=== PATIENT | female | born 1995 | race Caucasian/White ===

== ENCOUNTER 2020-05-25 00:56 | Emergency (ER) | payer SELFPAY ==
[2020-05-25] MEDS ORDERED: ACETAMINOPHEN 325 MG TABLET PO ONE (01:11)
--- NOTE | 2020-05-25 01:13 | ER Document Report ---
ED Medical Screen (RME) - General Chief Complaint: Vaginal Pain Stated Complaint: VAGINAL PAIN Time Seen by Provider: 05/25/20 01:08 Mode of Arrival: Ambulatory Information source: Patient Notes: HPI; 24-year-old female presents emergency room complaining of lower pelvic pain which she describes as a tearing sensation for the past 4 days. Also complains of dysuria. Vaginal discharge. Denies nausea, vomiting, has been taking ibuprofen and Tylenol without relief. DM placed. LMP 05/09. PE: Alert and oriented x3. Mild distress noted. Lungs: Clear to auscultation without rales, rhonchi, wheezes. Heart: Regular rate rhythm without murmurs, rubs, gallops. Unable to do full exam in triage. I have greeted and performed a rapid initial assessment of this patient. A comprehensive ED assessment and evaluation of the patient, analysis of test results and completion of the medical decision making process will be conducted by additional ED providers. I have specifically instructed the patient or family members with the patient to immediately return to any nursing staff should anything change in the patient's condition or with their chief complaint. TRAVEL OUTSIDE OF THE [place] IN LAST 30 DAYS: No - Related Data Allergies/Adverse Reactions: No Known Allergies Allergy (Verified 05/25/20 01:07)
--- NOTE | 2020-05-25 02:05 | RADIOLOGY REPORT (SQ) ---
Ultrasound pelvis transvaginal on 05/25/2020 at 1:29 AM CLINICAL INDICATION: Left pelvic pain COMPARISON: None FINDINGS: Multiple sonographic images are obtained throughout the pelvis by transvaginal approach, both transverse and sagittal images are obtained. Uterus measures approximately 7.0 x 3.3 x 4.4 cm. Endometrial stripe measures 3 mm which is within normal limits. The intrauterine device appears in good position in the endometrium. Uterine myometrium appears homogeneous. The right ovary measures approximately 2.9 x 2.1 x 1.6 cm. Flow is demonstrated within the right ovary. The left ovary measures approximately 4.4 x 2.0 x 4.0 cm. Flow is demonstrated in the left ovary. There is a 1.8 x 1.5 x 1.3 cm slightly complex dominant follicle in the left ovary with internal echoes but no internal blood flow and this likely represents a resolving hemorrhagic ovarian cyst. This should be considered benign with no follow-up recommended. Small amount of free fluid in the pelvis is likely physiologic. IMPRESSION: 1. 1.8 cm likely resolving hemorrhagic left ovarian cyst. This should be considered benign with no follow-up recommended. 2. Otherwise essentially unremarkable.
[2020-05-25 05:24] LABS: APPEARANCE,URINE CLEAR; BILIRUBIN,URINE NEGATIVE (NEGATIVE); COLOR,URINE YELLOW; GLUCOSE, URINE NEGATIVE (NEGATIVE); KETONES,URINE 20 mg/dL (NEGATIVE); LEUKOCYTE ESTERASE,URINE NEGATIVE (NEGATIVE); NITRITE,URINE NEGATIVE (NEGATIVE); PROTEIN,URINE NEGATIVE (NEGATIVE); URINE SPECIFIC GRAVITY 1.021
--- NOTE | 2020-05-25 05:48 | ER Document Report ---
HPI - HPI Time Seen by Provider: 05/25/20 01:08 Pain Level: 4 Notes: 24-year-old female patient presents the emergency department concern for left lower quadrant abdominal pain and increased vaginal discharge. She reports no concerns for STDs, states she is in a monogamous relationship. She states that she does have a history of ovarian cysts, states this feels similar. Denies any abnormal vaginal bleeding, fever, chills, nausea, vomiting or diarrhea. - ROS Systems Reviewed and Negative: Yes All other systems reviewed and negative - CONSTITUTIONAL Constitutional: DENIES: Fever, Chills - GASTROINTESTINAL Gastrointestinal: REPORTS: Abdominal Pain - Left lower quadrant/pelvic - REPRODUCTIVE Reproductive: REPORTS: Abnormal bleeding / discharge - Increased white vaginal discha Past Medical History - General Information source: Patient - Social History Smoking Status: Current Every Day Smoker Chew tobacco use (# tins/day): No Frequency of alcohol use: None Drug Abuse: Marijuana Family History: None - Denies Renal/ Medical History: Reports: Hx Ovarian Cysts Past Surgical History: Reports: Hx Tonsillectomy - Immunizations Immunizations up to date: Yes Vertical Provider Document - CONSTITUTIONAL Notes: PHYSICAL EXAMINATION: GENERAL: Well-appearing, well-nourished and in no acute distress. HEAD: Atraumatic, normocephalic. EYES: Pupils equal round and reactive to light, extraocular movements intact, conjunctiva are normal. ENT: Nares patent, oropharynx clear without exudates. Moist mucous membranes. NECK: Normal range of motion, supple without lymphadenopathy LUNGS: Breath sounds clear to auscultation bilaterally and equal. No wheezes rales or rhonchi. HEART: Regular rate and rhythm without murmurs ABDOMEN: Soft, nontender, nondistended abdomen. No guarding, no rebound. No masses appreciated. Female : Normal external genitalia, white vaginal discharge noted in the vaginal canal, cervix closed, no cervical motion tenderness, no adnexal tenderness. Musculoskeletal: Normal range of motion, no pitting or edema. No cyanosis. NEUROLOGICAL: Cranial nerves grossly intact. Normal speech, normal gait. Normal sensory, motor exams PSYCH: Normal mood, normal affect. SKIN: Warm, Dry, normal turgor, no rashes or lesions noted. - INFECTION CONTROL TRAVEL OUTSIDE OF THE [place] IN LAST 30 DAYS: No Course - Re-evaluation Re-evalutation: Patient appears well, nontoxic. She does have a left sided ovarian cyst. Her work-up is otherwise unremarkable. Normal urine, negative and no evidence of bacterial vaginosis or yeast. Patient will be given pain medication to help with her ovarian cyst. She does have an appointment with the health department in 3 days for her IUD to be removed. She will be encouraged to follow-up with them and keep this appointment. ED return precautions discussed, patient verbalized understanding and agreement with same. - Vital Signs Vital signs: Temp Pulse Resp BP Pulse Ox 99.0 F 18 114/75 99 05/25/20 01:13 05/25/20 01:13 05/25/20 01:13 05/25/20 01:13 - Laboratory Laboratory results interpreted by me: 05/25/20 05:02 Urine Ketones 20 H Urine Urobilinogen 4.0 H Discharge - Discharge Clinical Impression: Vaginal pain Ovarian cyst Qualifiers: Laterality: left Qualified Code(s): N83.202 - Unspecified ovarian cyst, left side Condition: Stable Disposition: HOME, SELF-CARE Additional Instructions: Ovarian Cyst Your examination shows the presence of an ovarian cyst. This is a ball of fluid attached to the ovary. Ovarian cysts in women of child-bearing age are usually innocent. However, the cyst may cause pain when it grows or bursts. An innocent ovarian cyst will usually go away by itself. When the cyst becomes painful, you should rest. Pain medication may be required. Some women find a hot water bottle soothing. The pain usually resolves within one or two days. After menopause, an ovarian cyst may mean a tumor, and requires more aggressive evaluation -- usually surgery is recommended to remove or biopsy the cyst. A very large cyst requires evaluation at any age. Most cysts (even the innocent ones) require follow-up examination. Call the doctor or return at any time if the pain increases significantly, if you become faint, or if you experience vaginal bleeding. Prescriptions: Hydrocodone/Acetaminophen [Butler 5-325 mg Tablet] 1 tab PO Q6HP PRN #10 tablet PRN Reason: Referrals: [facility] [Outside] - Follow up as needed
[2020-05-25] MEDS ORDERED: OXYCODONE-ACETAMINOPHEN 5-325 MG TABLET PO ONE (06:07)
[2020-05-25 06:21] LABS: RBCS (WET MOUNT) RARE RBCS SEEN; T.VAGINALIS (WET MOUNT) NO TRICHOMONAS SEEN; WBCS (WET MOUNT) 1+ WBCS SEEN; YEAST (WET MOUNT) NO YEAST SEEN
[2020-05-25 07:00] VITALS: BP 112/71
[2020-05-25 07:45] LABS: CHLAM PCR NOT DETECTED (NOT DETECT)
== END 2020-05-25 07:00 | disposition home or self-care (01) ==
LOC: ER 00:56
DX: N83.202 Unspecified ovarian cyst, left side (principal); R10.2 Pelvic and perineal pain; R10.32 Left lower quadrant pain; N89.8 Other specified noninflammatory disorders of vagina; N93.9 Abnormal uterine and vaginal bleeding, unspecified; F17.200 Nicotine dependence, unspecified, uncomplicated
CPT/HCPCS: 76830; 81001; 81025; 87210; 87491; 87591; 99284